=== PATIENT | male | born 1985 | race Hispanic/Latino ===

== ENCOUNTER → 2020-12-07 08:13 | Outpatient (CLI) | payer OTHER, SELFPAY ==
--- NOTE | 2020-12-07 08:13 | US_ITS ---
STUDY: SCROTUM ULTRASOUND REASON FOR EXAM: Male, 35 years old. Right lower quadrant pain. Testicular swelling worse on the right side. TECHNIQUE: Ultrasound evaluation of the scrotum was performed with color Doppler and static fernandez-scale imaging. COMPARISON: None. FINDINGS: RIGHT TESTICLE INTRATESTICULAR: There is a normal size of the right testicle. The right testicle measures 3.9 cm x 2.9 cm x 2.3 cm. There is a homogenous echotexture. There is normal arterial and normal venous vascularity. There is no demonstrated right testicular mass or cyst. EXTRATESTICULAR: The epididymis is normal in size. The epididymis head measures 0.8 cm x 1.1 cm x 0.8 cm. There is normal vascularity of the epididymis. There is no demonstrated epididymal cystic structure. There is a small hydrocele. There is no demonstrated varicocele. There is no demonstrated extratesticular mass or cyst. LEFT TESTICLE INTRATESTICULAR: There is a normal size of the left testicle. The left testicle measures 3.7 cm x 2.7 cm x 2.3 cm. There is a homogenous echotexture. There is normal arterial and normal venous vascularity. There is no demonstrated left testicular mass or cyst. EXTRATESTICULAR: The epididymis is normal in size. The epididymis head measures 0.7 cm x 1.5 cm x 0.7 cm. There is normal vascularity of the epididymis. There is a well-defined cystic structure within the epididymis, without internal echoes, consistent with an epididymal cyst. This measures 3 mm x 2 mm x 3 mm. There is no demonstrated hydrocele. There is no demonstrated varicocele. There is no demonstrated extratesticular mass or cyst. US/Testicular with Arterial Flow IMPRESSION: Small left epididymal cyst. Small right hydrocele. Electronically Signed: Jesse Cook MD at 9:59 EDT , Service support ,
== END ==
LOC: LAB 07:38 → US 08:13
PROVIDERS: PCP Clinical Nurse Specialist
DX: N50.811 Right testicular pain (principal); R10.31 Right lower quadrant pain
CPT/HCPCS: 76870; 93976